=== PATIENT | male | born 1950 | race Caucasian/White ===

== ENCOUNTER 2021-06-07 12:20 | Emergency (ER) | payer OTHER, BC ==
[2021-06-07 13:02] VITALS: BMI 24.4
[2021-06-07] MEDS ORDERED: BAMLANIVIMAB 700 MG, ETESEVIMAB 1,400 MG in SODIUM CHLORIDE 100 ML IVPB ONE (13:43)
[2021-06-07 17:15] VITALS: BP 125/79; PULSE 72; TEMP 98.3
== END 2021-06-07 18:24 | disposition home or self-care (01) ==
LOC: JER 12:20 → JCOVINFU 12:20
PROC: 3E0233Z Introduction of Anti-inflammatory into Muscle, Percutaneous Approach (ICD-10-PCS; principal; 2021-06-07)
DX: U07.1 COVID-19 (principal)
CPT/HCPCS: 99284-25; M0245; Q0245